=== PATIENT | female | born 1975 | race Caucasian/White ===

== ENCOUNTER 2017-03-26 01:12 | Emergency (ER) | payer MEDICAID ==
--- NOTE | 2017-03-26 01:23 | EDM.PDOC ---
ED HPI GENERAL MEDICAL PROBLEM - General Chief Complaint: Lower Extremity Injury/Pain Stated Complaint: INJURY TO LOWER Time Seen by Provider: 03/26/17 01:18 Source of Information: Reports: Patient, Significant Other History Limitations: Reports: No Limitations - History of Present Illness INITIAL COMMENTS - FREE TEXT/NARRATIVE: 41 yr female presents with injury to right foot. States she just stepped wrong , rolled foot, at home. Mild swelling noted to top, outer aspect of right foot and states pain to area. States she is unable to walk on it. Foot is elevated. Onset: Today Onset Date: 03/26/17 Onset Time: 01:00 Location: Reports: Lower Extremity, Right, Other (top of right foot, pain with swelling and bruise noted.) Severity: Moderate Improves with: Reports: Immobilization, Rest Worsens with: Reports: Movement Associated Symptoms: Reports: No Other Symptoms Right Feet Pain Score (Numeric/FACES): 5 - Related Data Allergies Allergy/AdvReac Type Severity Reaction Status Date / Time metaxalone [From Skelaxin] Allergy Severe Anaphylactic Verified 08/03/16 17:36 Shock Home Meds: Home Meds Acetaminophen [Tylenol] 650 mg PO Q6H 08/03/16 [History] Past Medical History HEENT History: Reports: Impaired Vision Other HEENT History: need driving glasses Cardiovascular History: Reports: Arrhythmia Respiratory History: Reports: Bronchitis, Recurrent Gastrointestinal History: Reports: Other (See Below) Other Gastrointestinal History: Pain to right upper abdomen, under rib cage, pain is 3 now, and 10 at its worse Genitourinary History: Reports: Other (See Below) Other Genitourinary History: UTI 1 1/2 months ago, had antibiotic 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 OB/BYN History: 4 vaginal births : parity: 4, gravity: 4 Musculoskeletal History: Reports: Back Pain, Chronic, Other (See Below) Other Musculoskeletal History: achilles tendon sprain, bunion removed, flat footed Neurological History: Reports: Migraines, Other (See Below) Other Neuro History: used to take Amitryptiline Endocrine/Metabolic History: Reports: Hyperthyroidism, Other (See Below) Other Endocrine/Metabolic History: hasn't had any medication since 1998 for this Dermatologic History: Reports: Other (See Below) Other Dermatologic History: contact dermatitis to right lower leg, gone now - Infectious Disease History Infectious Disease History: Reports: Chicken Pox, Influenza - Past Surgical History GI Surgical History: Reports: Other (See Below) Female Surgical History: Reports: Tubal Ligation Social & Family History - Family History Family Medical History: Noncontributory Cardiac: Reports: [place] Respiratory: Reports: COPD, Other (See Below) Other Respiratory Family Hisory: born with Bronchitis GI: Reports: None : Reports: Dialysis OBGYN: Reports: None Musculoskeletal: Reports: Arthritis, Back pain, Chronic, Fibromyalgia Neurological: Reports: Dementia, Migraines Psychiatric: Reports: Bipolar, Depression Endocrine/Metabolic: Reports: Diabetes, Type I Hematologic: Reports: None Immunologic: Reports: None - Tobacco Use Smoking Status *Q: Current Every Day Smoker Years of Tobacco use: 20 Packs/Tins Daily: 1 Used Tobacco, but Quit: No Second Hand Smoke Exposure: Yes - Caffeine Use Caffeine Use: Reports: Coffee, Soda - Recreational Drug Use Recreational Drug Use: No Review of Systems - Review of Systems Review Of Systems: See Below Constitutional: Reports: No Symptoms Respiratory: Reports: No Symptoms Cardiovascular: Reports: No Symptoms GI/Abdominal: Reports: No Symptoms Musculoskeletal: Reports: Foot Pain, Other (swelling top of foot) Skin: Reports: Bruising ED EXAM, GENERAL - Physical Exam Exam: See Below Exam Limited By: No Limitations General Appearance: Alert, WD/WN, No Apparent Distress Head: Atraumatic Respiratory/Chest: No Respiratory Distress Cardiovascular: Normal Peripheral Pulses, Other (pedal pulse strong to right foot) GI/Abdominal: Non-Tender Extremities: Normal Capillary Refill, Other (swelling and bruise noted to top of right foot. Pain with movement to right foot.). No: Increased Warmth Neurological: Alert, Oriented, Normal Cognition Psychiatric: Normal Affect, Normal Mood Skin Exam: Warm, Dry, Intact, Normal Color Course - Orders/Labs/Meds Orders: Active Orders 24 hr Category Date Time Status Foot 2V Rt [CR] Stat Exams 03/26/17 01:20 Taken - Re-Assessments/Exams Free Text/Narrative Re-Assessment/Exam: 03/26/17 02:02 X-ray completed to right foot. Small fracture noted to right, lateral side of foot, near 5th metatarsal. Reviewed results with pt and and viewed x-ray in ER. Recommend walking boot to foot for 2 week, rest and elevate foot with ice applied 4-5x/day. Recommend Naprosyn bid for pain and swelling. Pt states she has this at home. Recommend RTC in 2 weeks for follow- up. 03/26/17 07:47 Departure - Departure Time of Disposition: 02:04 Disposition: Home, Self-Care 01 Condition: Good Clinical Impression: Fracture of foot - Discharge Information Referrals: PCP,None [Primary Care Provider] - Forms: ED Department Discharge - My Orders Last 24 Hours: My Active Orders 03/26/17 01:20 Foot 2V Rt [CR] Stat - Assessment/Plan Last 24 Hours: My Active Orders 03/26/17 01:20 Foot 2V Rt [CR] Stat
[2017-03-26] MEDS ORDERED: Albuterol/Ipratropium 3.0-0.5 MG/3 ML Neb Soln NEB STA (08:33)
[2017-03-26] MEDS ORDERED: LORazepam 2 MG/ML MDV IM ONE (08:34)
--- NOTE | 2017-03-26 10:20 | CR ---
DATE OF SERVICE: 03/26/2017 CLINICAL DATA: Injury to right foot. RIGHT FOOT There is a lucency through the base of the 5th metatarsal consistent with a nondisplaced fracture. There is mild bunion deformity of the MP joint of the first toe. No other significant findings. IMPRESSION: Fracture 5th metatars[address]. [id number] [facility]
== END 2017-03-26 01:55 | disposition home or self-care (01) ==
LOC: LB.ED 01:12
DX: S92.351A Displaced fracture of fifth metatarsal bone, right foot, initial encounter for closed fracture (principal); G43.909 Migraine, unspecified, not intractable, without status migrainosus; F17.210 Nicotine dependence, cigarettes, uncomplicated; E05.90 Thyrotoxicosis, unspecified without thyrotoxic crisis or storm; Z98.51 Tubal ligation status; Z87.440 Personal history of urinary (tract) infections; Z88.8 Allergy status to other drugs, medicaments and biological substances; X50.1XXA Overexertion from prolonged static or awkward postures, initial encounter; Y92.009 Unspecified place in unspecified non-institutional (private) residence as the place of occurrence of the external cause
CPT/HCPCS: 73620-RT; 96372; 99283-25